=== PATIENT | female | born 1930 | race Caucasian/White ===

== ENCOUNTER 2016-05-26 08:48 | Inpatient (IN) | payer MEDICARE, OTHER ==
--- NOTE | ~2016-05-26 | DS ---
Discharge Summary [facility] [address] [place]. [address] NAME: LISETTE PENA : 34 STATUS : DIS IN PAT#: [id number] AGE: 86 ADM/REG DATE : 05/26/16 MR#: [id number] REPORT SERV DATE: 05/27/16 DICTATED BY: GEORGE BLANKENSHIP DATE: 05/27/16 REPORT STATUS : Draft TRANSCRIBED BY: BRANDON DATE: 05/27/16 ADMISSION DATE: 05/24/2016 DISCHARGE DATE: 05/27/2016 CONSULTATION: Cardiology, Dr. Geoffrey Eaton. PROCEDURE: Left heart catheterization that shows: 1. Single-vessel flow-limiting coronary artery disease, with severe diffuse disease in the proximal to mid LAD. 2. Mildly elevated left ventricular end-diastolic filling pressure. 3. Left ventriculogram not performed due to chronic kidney disease. 4. Successful PCI of the LAD with placement of a long drug-eluting stent. 30% with severe medial vessel stenosis despite aggressive noncompliant balloon post dilatation of the stent. RECOMMENDATIONS: 1. Guideline directed to therapy. 2. Ongoing medical management and risk factor modification. DISCHARGE DIAGNOSES: 1. Acute decompensated heart failure with reduced EF. 2. Coronary artery disease, status post left heart catheterization with a successful drug- eluting stent to the LAD. 3. Chronic left bundle-branch block. 4. Left-sided carotid endarterectomy. 5. Acute kidney injury on chronic kidney disease, stage 3. 6. History of hypertension. 7. History of severe glaucoma with increased pressure, status post history of recent eye surgery prior to this admission. 8. History of rheumatoid arthritis. 9. History of chronic back pain with sciatica. 10.History of hypothyroidism. DISCHARGE CONDITION: Stable. DISCHARGE MEDICATIONS: 1. Amlodipine 10 mg p.o. daily. 2. Aspirin 81 mg p.o. daily. 3. Lipitor 40 mg p.o. at bedtime. 4. Combigan ophthalmic solution one drop daily. 5. Cyclosporine ophthalmic solution 0.05% 0.4 mL b.i.d. 6. Levothyroxine 75 mcg p.o. daily. 7. Coreg 6.25 mg one tab p.o. b.i.d. 8. Plavix 75 mg p.o. daily. 9. Atorvastatin 40 mg p.o. daily. 10.Prednisone acetate 1% ophthalmic solution, one drop b.i.d. Discharge Summary [facility] [id number] [place]. [address] NAME: LISETTE PENA : 34 STATUS : DIS IN PAT#: [id number] AGE: 86 ADM/REG DATE : 05/26/16 MR#: [id number] REPORT SERV DATE: 05/27/16 DICTATED BY: GEORGE BLANKENSHIP DATE: 05/27/16 REPORT STATUS : Draft TRANSCRIBED BY: BRANDON DATE: 05/27/16 11.Ketorolac tromethamine 0.5% one drop b.i.d. 12.Colace 5 mg p.o. daily. HISTORY OF PRESENT ILLNESS: For detailed HPI, make reference to Dr. Eulogio Sandoval' dictation on 05/24/2016. In brief, this is an 86-year-old female with medical history of congestive heart failure, who presented to the emergency department of [facility] at the [facility] with mild confusion and was initially referred to the hospital for a stroke workup. CT scan in the emergency room showed no evidence of acute CVA. The patient was found to have significantly elevated creatinine of 2.1. She was started on IV fluids and admitted to the hospitalist service for acute confusion secondary to acute kidney injury. HOSPITAL COURSE: The patient was continued on gentle IV fluids; however, the patient became significantly short of breath and noted to be hypoxic. A repeat chest x-ray shows pulmonary vascular congestion in keeping with acute decompensated heart failure. IV fluid was discontinued. An echocardiogram was done that shows that the patient had an EF of 40%. A repeat troponin was done and it came back as 1.67. Cardiology was consulted. Recommended to continue IV diuretics and a cardiac catheterization. The patient was transferred from the [facility] to the [facility] for left cardiac catheterization. For detailed hospital course at the [facility], please make reference to discharge summary dictated by Dr. Eulogio Sandoval on 05/26/2016. The patient underwent left heart catheterization that showed a single-vessel flow-limiting coronary artery disease, with severe diffuse disease in the proximal to mid LAD. A PCI was successfully deployed without any complications. Post cardiac catheterization, the patient remained stable, reports significant improvement in shortness of breath, also reports significant improvement in chest pressure. Per Cardiology, the patient was recommended to continue beta-rosalie, to avoid DEONNA or ARBs given recent acute kidney injury and follow up with primary care physician as an outpatient. Acute kidney injury on chronic kidney disease. On presentation, the patient's creatinine was 2.1. With gentle IV fluids, the patient's creatinine trended down to 1.7. However, the patient became fluid overloaded. IV fluid was discontinued. The patient was then subsequently monitored. The patient's creatinine continued to improve prior to discharge. At the time of discharge, the patient's creatinine returned back to baseline of 1.6. Unsteady gait. Prior to discharge, the patient was noted to be unsteady on her feet. Physical Therapy was consulted for evaluation and recommendations. The patient was discharged home with home health and home PT. DISCHARGE FOLLOWUP: Follow up with primary care physician. Follow up with Cardiology as an outpatient. Greater than 35 minutes were used to prepare this patient's discharge, reconcile medication, and advise the patient on discharge plans and followup. Discharge Summary [address] [address] NAME: LISETTE PENA : 34 STATUS : DIS IN PAT#: [id number] AGE: 86 ADM/REG DATE : 05/26/16 MR#: [id number] REPORT SERV DATE: 05/27/16 DICTATED BY: GEORGE BLANKENSHIP DATE: 05/27/16 REPORT STATUS : Draft TRANSCRIBED BY: BRANDON DATE: 05/27/16 RIGOBERTO/BRANDON George Blankenship MD / [id number] CC: MD Mukesh Burnham M.D.
[~2016-05-26 08:48] MED LIST: ACULAR OPH; ASAB PO; ATEN25 PO; ATEN50 PO; AZOPT OPH; BIST PO; CALTRA600D PO; CAT1 PO; COMBIGAN0.2 MG/0.5 OP; COMBIGAN0.2 MG/0.5 OPH; COZ50 PO; CRANBERRY1 TAB OR; CRESTOR10 PO; CRESTOR20 MG PO; EZFE 200200 MG PO; FISH-EPA1000 MG PO; FOLIC PO; HALF81 PO; HERB LAX; LUMIGAN OPH; MAG-SR535 MG PO; MAX25 PO; MTX2.5 PO; MULTIPLE VIT PO; NORV5 PO; OS500+D PO; PLAQ200B PO; PREDFORTE OPH; PRILOSEC10 MG PO; QUALAQUIN PO; RELA5 PO; RESTASIS OPH; SYN.05 PO; SYN075 PO; SYSTANE ULTR OPH; ZOCOR40 PO; [UNRECOGNIZED DRUG - OTHER] TOP
[2016-05-26 11:21] LABS: BUN (BLOOD UREA NITROGEN) 35 MG/DL (6-23); CALCIUM, SERUM 8.6 MG/DL (8.5-10.4); CHLORIDE, SERUM 100 MMOL/L (96-112); CHOL/HDL RATIO(NOT ORDER) 5.3 (0-5); CHOLESTEROL 210 MG/DL (< 200); CO2 (CARBON DIOXIDE) 21 MMOL/L (24-34); CREATININE 1.96 MG/DL (0.55-1.02); GFR AFRICAN AMERICAN 27 ML/MIN (>=60); GFR NON AFRICAN AMERICAN 23 ML/MIN (>=60); HDL CHOLESTEROL 40 MG/DL (> 49); LDL CHOLESTEROL 148 MG/DL (< 130); NON-HDL CHOLESTEROL 170 MG/DL (< 160); POTASSIUM, SERUM 3.7 MMOL/L (3.5-5.3); SODIUM, SERUM 131 MMOL/L (135-148)
[2016-05-26 11:22] LABS: GLUCOSE, SERUM 171 MG/DL (60-99); TRIGLYCERIDE 113 MG/DL (< 150)
[2016-05-26 16:55] LABS: CK-MB 3.2 NG/ML; CPK 153 U/L (0-200)
[2016-05-26 18:02] LABS: CK-MB 3.2 NG/ML; CPK 126 U/L (0-200)
[2016-05-27 05:35] LABS: BASOPHILS 0.9 %; BASOPHILS ABSOLUTE 0.08 10/3/uL (0.0-0.16); EOSINOPHILS 4.7 %; HEMOGLOBIN 8.7 g/dL (12.0-16.0); IMMATURE GRANULOCYTES 0.5 %; IMMATURE GRANULOCYTES ABSOLUTE 0.04 10/3/uL (0.0-0.11); LYMPHOCYTES 17.9 %; LYMPHOCYTES ABSOLUTE 1.53 10/3/uL (0.67-4.30); MANUAL DIFF NO %; MEAN CORPUS HGB CONC 34.8 g/dL (32.0-36.0); MEAN CORPUSCULAR HEMOGLOB 28.7 pg (26.0-34.0); MEAN CORPUSCULAR VOLUME 82.5 fL (80-100); MEAN PLATELET VOLUME 9.3 fL (9.2-13.0); MONOCYTES 9.5 %; MONOCYTES ABSOLUTE 0.81 10/3/uL (0.21-1.20); NEUTROPHILS 66.5 %; NEUTROPHILS ABSOLUTE 5.67 10/3/uL (2.02-8.40); PLATELET COUNT 271 10/3/uL (150-400); RBC DISTRIBUTION WIDTH 13.3 % (12.0-16.0); RED CELL COUNT 3.03 10/6/uL (4.0-5.6); WHITE BLOOD CELLS 8.5 10/3/uL (4.5-10.5)
[2016-05-27 05:59] LABS: BUN (BLOOD UREA NITROGEN) 35 MG/DL (6-23); CALCIUM, SERUM 8.7 MG/DL (8.5-10.4); CHLORIDE, SERUM 109 MMOL/L (96-112); CHOL/HDL RATIO(NOT ORDER) 5.3 (0-5); CHOLESTEROL 202 MG/DL (< 200); CK-MB 29.5 NG/ML; CO2 (CARBON DIOXIDE) 20 MMOL/L (24-34); CREATININE 1.71 MG/DL (0.55-1.02); GFR AFRICAN AMERICAN 31 ML/MIN (>=60); GFR NON AFRICAN AMERICAN 27 ML/MIN (>=60); HDL CHOLESTEROL 38 MG/DL (> 49); NON-HDL CHOLESTEROL 164 MG/DL (< 160); PHOSPHORUS, SERUM 3.9 MG/DL (2.5-4.5); POTASSIUM, SERUM 4.1 MMOL/L (3.5-5.3)
[2016-05-27 06:00] LABS: ALBUMIN 2.5 G/DL (3.5-5.0); CKMB INDEX (NOT ORD) 11.6; CPK 254 U/L (0-200); GLUCOSE, SERUM 82 MG/DL (60-99); LDL CHOLESTEROL 134 MG/DL (< 130); SODIUM, SERUM 138 MMOL/L (135-148); TRIGLYCERIDE 151 MG/DL (< 150)
[2016-05-27] MEDS ORDERED: LIPITOR40 PO (10:23)
[2016-05-27] MEDS ORDERED: PLAVIX PO (10:24)
[2016-05-27] MEDS ORDERED: COREG6 PO (10:24)
[2016-05-27] MEDS ORDERED: L20 PO (11:18)
[2016-06-28] MEDS ORDERED: APRES25 PO (12:24)
[2016-06-28] MEDS ORDERED: SENTAB PO (12:24)
[2016-06-28] MEDS ORDERED: T PO (12:25)
[2016-06-28] MEDS ORDERED: LIQUID TEARS OPH (12:26)
== END 2016-05-27 13:25 | disposition home or self-care (01) | DRG 246 ==
LOC: CORLMH 08:48 → SSU1 10:39
PROVIDERS: Hospitalist; Internal Medicine Cardiovascular Disease
PROC: 027034Z Dilation of Coronary Artery, One Artery with Drug-eluting Intraluminal Device, Percutaneous Approach (ICD-10-PCS; principal; 2016-05-26)
PROC: 4A023N7 Measurement of Cardiac Sampling and Pressure, Left Heart, Percutaneous Approach (ICD-10-PCS; 2016-05-26)
PROC: B2111ZZ Fluoroscopy of Multiple Coronary Arteries using Low Osmolar Contrast (ICD-10-PCS; 2016-05-26)
DX: I21.4 Non-ST elevation (NSTEMI) myocardial infarction (principal); I50.23 Acute on chronic systolic (congestive) heart failure; G93.40 Encephalopathy, unspecified; N17.9 Acute kidney failure, unspecified; I13.0 Hypertensive heart and chronic kidney disease with heart failure and stage 1 through stage 4 chronic kidney disease, or unspecified chronic kidney disease; I25.10 Atherosclerotic heart disease of native coronary artery without angina pectoris; I44.7 Left bundle-branch block, unspecified; N18.3 Chronic kidney disease, stage 3 (moderate); H40.9 Unspecified glaucoma; M06.9 Rheumatoid arthritis, unspecified; G89.29 Other chronic pain; M54.9 Dorsalgia, unspecified; M54.30 Sciatica, unspecified side; E03.9 Hypothyroidism, unspecified; E78.5 Hyperlipidemia, unspecified; E78.00 Pure hypercholesterolemia, unspecified; Z88.5 Allergy status to narcotic agent; Z88.8 Allergy status to other drugs, medicaments and biological substances; Z82.49 Family history of ischemic heart disease and other diseases of the circulatory system; Z90.710 Acquired absence of both cervix and uterus; Z88.6 Allergy status to analgesic agent; Z91.048 Other nonmedicinal substance allergy status
CPT/HCPCS: 70450; 71010; 80048; 80053; 80061; 80069; 81001; 82270; 82550; 82553; 83735; 84484; 85025; 85610; 85730; 93005; 93306; 93458; 97161-GP; 99152; 99153; 99285; A9270-GY; C1725; C1769; C1874; C1887; C1894; C9600; G8978-CJ-GP; G8979-CJ-GP; G8980-CJ-GP; J0583; J1170; J2250; J3010; Q9967